=== PATIENT | female | born 1950 | race Caucasian/White ===

== ENCOUNTER 2019-03-10 06:15 | Inpatient (IN) | payer OTHER, MEDICAID ==
[~2019-03-10 06:15] MED LIST: BUPIVACAINE 0.5% (SDV) 30 ML, morphine SULFATE (PF) 8 MG, EPINEPHrine 0.3 MG, KETOROLAC... IRR; CEFAZOLIN 2 GM/50 ML (PMX) 50 ML IVPB; DEXAMETHASONE 1 MG TAB PO; GABAPENTIN 300 MG CAP PO; TRANEXAMIC ACID 1GM/100ML(PMX) 100 ML IVPB
[2019-03-10] MEDS: GABAPENTIN 300 MG CAP PO ×2 (07:51→21:11)
[2019-03-10] MEDS: LACTATED RINGER'S 1,000 ML IV (07:52)
[2019-03-10] MEDS: DEXAMETHASONE 1 MG TAB PO (07:52)
[2019-03-10] MEDS ORDERED: ROPIVACAINE 0.2% 20 ML VIAL (08:06)
[2019-03-10] MEDS ORDERED: MIDAZOLAM 1 MG/ML 2 ML INJ (08:06)
[2019-03-10] MEDS: TRANEXAMIC ACID 1GM/100ML(PMX) 100 ML IVPB ×2 (08:30→11:17)
[2019-03-10] MEDS: CEFAZOLIN 2 GM/50 ML (PMX) 50 ML IVPB (08:30)
[2019-03-10] MEDS ORDERED: BUPIVACAINE 0.5% (SDV) 30 ML, morphine SULFATE (PF) 8 MG, EPINEPHrine 0.3 MG, KETOROLAC... IRR (08:30)
[2019-03-10] MEDS ORDERED: PROPOFOL 20 ML (09:09)
[2019-03-10] MEDS ORDERED: METOCLOPRAMIDE 10 MG INJ (09:09)
[2019-03-10] MEDS ORDERED: ONDANSETRON 4 MG INJ (09:09)
[2019-03-10] MEDS ORDERED: HYDROCORTISONE 100 MG INJ (09:09)
[2019-03-10] MEDS ORDERED: CEFAZOLIN 1 GM INJ (09:25)
[2019-03-10] MEDS ORDERED: TRANEXAMIC ACID 1GM/100ML(PMX) 100 ML (09:25)
[2019-03-10] MEDS ORDERED: CA CHLORIDE (GM) 10% 10 ML INJ (09:33)
[2019-03-10] MEDS: POLYMYXIN/BACITRACIN 1L IRRIG (09:33)
[2019-03-10] MEDS ORDERED: BUPIVACAINE 0.5%/EPI (SDV) 30 ML INJ (09:33)
[2019-03-10] MEDS ORDERED: THROMBIN 5000 UNIT (RECOTHROM) VIAL (09:33)
[2019-03-10] MEDS ORDERED: EPHEDrine 25 MG/5 ML SYG (09:52)
[2019-03-10] MEDS ORDERED: DIPHENHYDRAMINE 50 MG INJ IV ×2 (10:00→10:30)
[2019-03-10] MEDS ORDERED: hydrALAzine 20 MG INJ IV (10:00)
[2019-03-10] MEDS ORDERED: MEPERIDINE 25 MG INJ IV (10:00)
[2019-03-10] MEDS ORDERED: FENTAnyl 50 MCG/ML VIAL IV ×3 (10:00)
[2019-03-10] MEDS ORDERED: ONDANSETRON 4 MG INJ IV ×2 (10:00→10:30)
[2019-03-10] MEDS ORDERED: HYDROmorphONE 1 MG/5 ML IV SYRINGE IV ×3 (10:00)
[2019-03-10] MEDS ORDERED: LABETALOL HCL 20MG INJ IV (10:00)
[2019-03-10] MEDS ORDERED: LOPERAMIDE 2 MG CAP PO (10:30)
[2019-03-10] MEDS ORDERED: HYDROmorphONE 1 MG/ML SYG IV (10:30)
[2019-03-10] MEDS ORDERED: ZOLPIDEM 5 MG TAB PO (10:30)
[2019-03-10] MEDS ORDERED: NACL 0.9% 3 ML SYG IV (10:30)
[2019-03-10] MEDS ORDERED: oxyCODONE 5 MG TAB PO ×3 (10:30)
[2019-03-10] MEDS ORDERED: MAGNESIUM HYDROXIDE 30ML CUP PO (10:30)
[2019-03-10] MEDS: ACETAMINOPHEN 500 MG TAB PO ×2 (13:52→19:15)
[2019-03-10] MEDS: CEFAZOLIN 1 GM/50 ML (PMX) 50 ML IVPB ×2 (18:29→19:15)
[2019-03-10] MEDS: SENNA/DOCUSATE NA (8.6MG/50MG) TAB PO (21:11)
[2019-03-10] MEDS: TICAGRELOR 90 MG TABLET PO (21:13)
[2019-03-11] MEDS: CEFAZOLIN 1 GM/50 ML (PMX) 50 ML IVPB (03:10)
[2019-03-11] MEDS: KETOROLAC 15 MG INJ IV (03:17)
[2019-03-11] MEDS: ACETAMINOPHEN 500 MG TAB PO ×2 (06:47)
[2019-03-11] MEDS: SENNA/DOCUSATE NA (8.6MG/50MG) TAB PO (08:27)
[2019-03-11] MEDS: predniSONE 2.5 MG TAB PO (08:28)
[2019-03-11] MEDS: TICAGRELOR 90 MG TABLET PO (08:38)
== END 2019-03-11 10:57 | disposition home or self-care (01) | DRG 483 ==
LOC: REC 06:15 → MS1 15:50
PROC: 0RRK00Z Replacement of Left Shoulder Joint with Reverse Ball and Socket Synthetic Substitute, Open Approach (ICD-10-PCS; principal; 2019-03-10 09:13)
PROC: 0LS40ZZ Reposition Left Upper Arm Tendon, Open Approach (ICD-10-PCS; 2019-03-10 09:13)
DX: M75.102 Unspecified rotator cuff tear or rupture of left shoulder, not specified as traumatic (principal); M13.812 Other specified arthritis, left shoulder; E78.5 Hyperlipidemia, unspecified
CPT/HCPCS: 73030; 86999; 88304; 88311; 97161